=== PATIENT | male | born 1945 | race Caucasian/White ===

== ENCOUNTER 2017-08-21 15:07 | Emergency (ER) | payer MEDICARE, OTHER ==
[2017-08-21 15:28] VITALS: BP 150/88; TEMP 97.9; O2SAT 98
[2017-08-21] MEDS ORDERED: CYCLOBENZAPRINE HCL 10 MG TAB PO ONE (15:37)
--- NOTE | 2017-08-21 15:40 | ED.PDOC ---
History of Present Illness - General Chief Complaint: Back Pain or Injury Stated Complaint: low back pain,left shoulder pain Time Seen by Provider: 08/21/17 15:09 Source: patient, RN notes reviewed, Vital Signs reviewed Exam Limitations: no limitations - History of Present Illness Initial Comments: Patient presents to ER with c/o L shoulder pain and low back pain since Thursday. He was unloading/disconnecting a trailer and the pole jerked and injured his L shoulder and low back. Bar did not hit him, just pulled his muscles. He saw his doctor at the [facility] yesterday who recommended coming to ER to get X-rays. He has been taking Ibuprofen, Tramadol and Tylenol #3 w/o relief in his pain. Timing/Duration: days - 5 Quality/Severity: moderate Back Pain Location: lumbar spine, paraspinous muscles, other - L shoulder - anterior Back Pain Radiation: other - None Method of Injury/Prior Injury: other - see above Improving Factors: nothing Worsening Factors: movement Associated Symptoms: muscle spasms, lower back pain Allergies/Adverse Reactions: Allergies Morphine Allergy (Verified 08/21/17 15:28) Home Medications: Ambulatory Orders Cyclobenzaprine HCl [Flexeril] 10 mg PO Q8HR PRN #30 tab 08/21/17 Tramadol HCl [Ultram] 50 mg PO DAILY 08/21/17 Review of Systems - Review of Systems Constitutional: States: no symptoms reported EENTM: States: other - legally blind Respiratory: States: no symptoms reported Cardiology: States: no symptoms reported Gastrointestinal/Abdominal: States: no symptoms reported Genitourinary: States: no symptoms reported Musculoskeletal: States: see HPI, back pain, joint pain - L shoulder Skin: States: no symptoms reported Neurological: States: no symptoms reported All other Systems: No Change from Baseline Past Medical History (General) - Patient Medical History Hx Cardiac Disorders: Yes - LA x2 Hx Congestive Heart Failure: No Hx Diabetes: No Surgical History: cholecystectomy - Vaccination History Hx Influenza Vaccination: No Hx Pneumococcal Vaccination: No - Social History Hx Tobacco Use: Yes Family Medical History - Family History Father Family History: Unknown Living Status: Unknown Physical Exam - Physical Exam General Appearance: Alert, No apparent distress, Well Developed, Well Groomed, Well Hydrated, Well Nourished Neck Exam: non-tender, normal alignment, normal inspection Cardiovascular/Respiratory: regular rate, rhythm, no M/R/G, normal breath sounds , no respiratory distress Back Exam: muscle spasm - R lumbar paraspinous muscles, vertebral tenderness - over lumbar spine Extremity Exam: pain with movement - L shoulder, tenderness - over L anterior rotator cuff, other - Limited ROM L shoulder due to pain Neurologic: no motor/sensory deficits, alert, normal mood/affect, oriented x 3 Skin Exam: normal color, warm/dry Comments: Vital Signs 08/21/17 15:22 Temperature 97.9 F Pulse Rate [ 79 Right Brachial] Respiratory 16 Rate Blood Pressure 150/88 [Right Arm] O2 Sat by Pulse 98 Oximetry Progress - EKG/XRAY/CT XRAY: L-Spine - mild collapse of superior & inferior endplates of L2 per Rad - Additional EKG/XRAY/Consults XRAY #2: L Shoulder: Normal per Rad Departure - Departure Clinical Impression: Injury of left rotator cuff Qualifiers: Encounter type: initial encounter Qualified Code(s): S46.002A - Unspecified injury of muscle(s) and tendon(s) of the rotator cuff of left shoulder, initial encounter Compression fracture of L2 lumbar vertebra Qualifiers: Encounter type: initial encounter Fracture type: closed Qualified Code(s): S32.020A - Wedge compression fracture of second lumbar vertebra, initial encounter for closed fracture Time of Disposition: 16:18 Disposition: Discharge to Home or Self Care Condition: Good Departure Forms: ED Discharge - Pt. Copy, Patient Portal Self Enrollment Instructions: DI for Rotator Cuff Injury, DI for Vertebral Fracture Diet: resume usual diet Activity: increase activity as tolerated Referrals: BLAIRE OTTO [Primary Care Provider] - 1-2 Weeks Prescriptions: Cyclobenzaprine HCl [Flexeril] 10 mg PO Q8HR PRN #30 tab PRN Reason: Muscle Spasms Home Medications: Ambulatory Orders Cyclobenzaprine HCl [Flexeril] 10 mg PO Q8HR PRN #30 tab 08/21/17 Tramadol HCl [Ultram] 50 mg PO DAILY 08/21/17
--- NOTE | 2017-08-21 16:07 | RAD ---
EXAM DESCRIPTION: Shoulder,Left 2 or More Views CLINICAL HISTORY: pain after moving trailer COMPARISON: None. TECHNIQUE: 2 views left FINDINGS: I see no bone joint or soft tissue abnormality. IMPRESSION: Normal two-view left shoulder Electronically signed by: Agustín Bennett MD 08/21/2017 4:06 PM [facility]
--- NOTE | 2017-08-21 16:07 | RAD ---
EXAM DESCRIPTION: Lumbar Spine 3 Views CLINICAL HISTORY: pain after moving trailer COMPARISON: CTA of the abdomen dated to May 2012 TECHNIQUE: AP/lateral/coned-down lateral FINDINGS: The lumbar vertebral bodies are in good AP alignment. Surgical clips are seen in the right upper quadrant. Pronounced osteopenia is observed throughout the lumbar spine. Loss of disc height is observed at the L1-2 level. Anterior osteophyte formation is observed. There is some mild compression of the superior and inferior endplates of L2. This is a new finding when compared to the previous CT. Calcific atherosclerotic changes observed in the abdominal aorta without evidence of aneurysmal dilatation. IMPRESSION: 1. Focal degenerative changes are observed at the L1-2 level. 2. The exam reveals mild collapse of the superior and inferior endplates of L2. 3. Marked osteopenia is noted. Electronically signed by: Agustín Bennett MD 08/21/2017 4:05 PM [facility]
== END 2017-08-21 16:24 | disposition home or self-care (01) ==
LOC: ER 15:07
DX: S46.002A Unspecified injury of muscle(s) and tendon(s) of the rotator cuff of left shoulder, initial encounter (principal); S32.020A Wedge compression fracture of second lumbar vertebra, initial encounter for closed fracture; I25.2 Old myocardial infarction; Z88.6 Allergy status to analgesic agent; X50.0XXA Overexertion from strenuous movement or load, initial encounter; Y92.9 Unspecified place or not applicable

== ENCOUNTER 2017-11-20 13:45 | Emergency (ER) | payer MEDICARE, OTHER ==
--- NOTE | 2017-11-20 15:31 | RAD ---
EXAM DESCRIPTION: Chest,1 View CLINICAL HISTORY: 72 years Male, COUGH COMPARISON: None. IMPRESSION: Heart size and pulmonary vascularity are within normal limits. Atherosclerosis in the thoracic aorta. Coarsened perihilar interstitial markings with more patchy interstitial thickening and airspace opacities in the left lower lung zone. The findings may reflect chronic interstitial fibrosis, fluid overload with interstitial edema, or multifocal pneumonia. Short interval follow-up is recommended. No pleural effusion or pneumothorax. No acute osseous abnormality. Electronically signed by: August Garcia MD 11/20/2017 3:30 PM [facility] [facility]
[2017-11-20] MEDS ORDERED: SODIUM CHLORIDE 0.9% 1000ML 1,000 ML IVS ONE (17:14)
[2017-11-20] MEDS ORDERED: diltiaZEM DRIP 125 MG in SODIUM CHLORIDE 0.9% 100ML 100 ML IVPB SCH (18:00)
[2017-11-20] MEDS ORDERED: SODIUM CHLORIDE 0.9% 100ML 100 ML IVPB ONE (18:15)
[2017-11-20] MEDS ORDERED: diltiaZEM DRIP 125 MG/25 ML VIAL IVPB ONE (18:16)
--- NOTE | 2017-11-20 19:25 | ED.PDOC ---
History of Present Illness - General Chief Complaint: Respiratory Problem Time Seen by Provider: 11/20/17 14:10 Source: patient, family Exam Limitations: no limitations - History of Present Illness Initial Comments: THE PATIENT IS BROUGHT TO THE ED BECAUSE OF DECREASE APPETITE AND WEAKNESS AND A COUGH AND SOB. HE DENIES ANY FEVER. FAMILY VOICES THAT THE PATIENT SUFFERS OF CHRONIC BACK PAIN AND ON TYLENOL 3. Timing/Duration: 1 week Severity: moderate Possible Cause: frequent episodes Improving Factors: nothing Worsening Factors: nothing Associated Symptoms: denies symptoms Respiratory Risk Factors: no cause identified Allergies/Adverse Reactions: Allergies Morphine Allergy (Verified 08/21/17 15:28) Home Medications: Ambulatory Orders Cyclobenzaprine HCl [Flexeril] 10 mg PO Q8HR PRN #30 tab 08/21/17 Tramadol HCl [Ultram] 50 mg PO DAILY 08/21/17 Review of Systems - Review of Systems Constitutional: States: no symptoms reported EENTM: States: no symptoms reported Respiratory: States: no symptoms reported, short of breath Cardiology: States: no symptoms reported Gastrointestinal/Abdominal: States: no symptoms reported Genitourinary: States: no symptoms reported Musculoskeletal: States: no symptoms reported Skin: States: no symptoms reported Neurological: States: no symptoms reported Endocrine: States: no symptoms reported Hematologic/Lymphatic: States: no symptoms reported Past Medical History (General) - Patient Medical History Hx Seizures: No Hx Stroke: No Hx Dementia: No Hx Asthma: No Hx of COPD: No Hx Cardiac Disorders: Yes - [facility] 2017 Hx Congestive Heart Failure: No Hx Pacemaker: No Hx Hypertension: Yes Hx Thyroid Disease: No Hx Diabetes: No Hx Gastroesophageal Reflux: No Hx Renal Disease: No Hx Cancer: Yes - radiation to right lung Hx of HIV: No Hx Hepatitis C: No Hx MRSA: No Surgical History: cholecystectomy - Vaccination History Hx Tetanus, Diphtheria Vaccination: No Hx Influenza Vaccination: No Hx Pneumococcal Vaccination: No Immunizations Up to Date: No - Social History Hx Tobacco Use: Yes Years Tobacco Use: 50 Cigarettes Packs Per Day: 1 Hx Chewing Tobacco Use: No Hx Alcohol Use: Yes - occasional Hx Substance Use: Yes Hx Substance Use Treatment: No Hx Depression: Yes Feels Threatened In Home Enviroment: No Feels Threatened In a Relationship: No Hx Physical Abuse: No Hx Emotional Abuse: No Hx Suspected Abuse: No - Activities of Daily Living Hospice Agency (if applicable):: None - Female History Patient is a Female of Child Bearing Age (10 -59 yrs old): No Patient : No Family Medical History - Family History Father Family History: Unknown Living Status: Unknown Physical Exam - Physical Exam General Appearance: No apparent distress, Well Groomed Eyes, Ears, Nose, Throat Exam: PERRL/EOMI, normal ENT inspection, TMs normal Neck: non-tender, full range of motion, supple, normal inspection Respiratory: decreased breath sounds, rhonchi Cardiovascular/Chest: normal peripheral pulses, other - INITIALLY HAD A REGULAR RATE AND RHYTHM AND THEN BECAME TACHYCARDIC AROUND 140. Peripheral Pulses: radial,right: 2+, radial,left: 2+ Gastrointestinal/Abdominal: normal bowel sounds, non tender, soft, no organomegaly, no pulsatile mass Rectal Exam: deferred Extremity: normal range of motion, non-tender, normal inspection, no pedal edema Neurologic: no motor/sensory deficits, alert, normal mood/affect, oriented x 3 Skin Exam: normal color Lymphatic: no adenopathy Progress - Results/Orders Results/Orders: EKG #1: HR OF 98, MI INTERVAL OF 142, QRS OF 90, QTC OF 467, AXES OF -20 DEGREES. IMPRESSION: SINUS RHYTHM, EVIDENCE OF ANTERIOR AND INFERIOR WALL [place] AGE UNDETERMINED. EKG#2: HR OF 125, QRS OF 96, QTC OF 560, AXES OF -25 DEGREES. IMPRESSION: ATRIAL FIBRILLATION WITH RVR CASE DISCUSSED WITH DR. MEDINA- ACCEPTS TRANSFER. - EKG/XRAY/CT CT Ordered: No Departure - Departure Clinical Impression: New onset atrial fibrillation Time of Disposition: 20:36 Disposition: Transfer to Hospital Referrals: BLAIRE OTTO [Primary Care Provider] - 1-2 Weeks Home Medications: Ambulatory Orders Cyclobenzaprine HCl [Flexeril] 10 mg PO Q8HR PRN #30 tab 08/21/17 Tramadol HCl [Ultram] 50 mg PO DAILY 08/21/17 Critical Care Note - Critical Care Note Comments: CRITICAL EVENT: ANOREXIA, MALAISE CRITICAL FINDINGS: ATRIAL FIBRILLATION WITH RVR-NEW ONSET CRITICAL ACTIONS: CARDIZEN IVP CARDIZEM IV DRIP- TRANSFER TO A HIGHER LEVEL OF CARE CRITICAL TIME: 35 MINUTES SYSTEMS AT RISK: CARDIOVASCULAR. Transfer to Outside Facility - Transfer Information Accepting Provider:: DR. MYRNA PLUMMER Accepting Facility: [facility]
[2017-11-20 21:57] VITALS: TEMP 100
[2017-11-20 22:54] VITALS: BP 149/68; O2SAT 94
== END 2017-11-20 22:10 | disposition short-term general hospital (02) ==
LOC: ER 13:45
DX: I48.91 Unspecified atrial fibrillation (principal); I25.2 Old myocardial infarction; I10 Essential (primary) hypertension; Z85.118 Personal history of other malignant neoplasm of bronchus and lung; F17.210 Nicotine dependence, cigarettes, uncomplicated
CPT/HCPCS: 36415; 71045; 80048; 81001; 82550; 82553; 83880; 84484; 85025; 85610; 85730; 93005; 94760; J7030; J7050

== ENCOUNTER 2018-08-15 16:45 | Emergency (ER) | payer MEDICARE, OTHER ==
[2018-08-15] MEDS ORDERED: ONDANSETRON INJ 4 MG/2 ML VIAL IV ONE (17:18)
--- NOTE | 2018-08-15 17:30 | ED.PDOC ---
History of Present Illness - General Chief Complaint: Cardiovascular Problem Stated Complaint: N/V, chest discomfort x 3 days Time Seen by Provider: 08/15/18 17:29 Source: patient Exam Limitations: no limitations - History of Present Illness Initial Comments: Buster Casarez 72 y/o male brought to ER with nausea /vomiting the last 2 days no diarrhea and had been eating broth in small amounts since he also get nauseated.no fever or chills,no dysuria or hematuria but with cough accompanied by pleuritic chest pains front and back of chest during coughing episodes.Had generalized weakness also the last 2 days.Had cad/mi,thoracic aortic aneurysm.Also cardiac stent was tried but they were not able to to do it at [facility] and [facility] due to his aneurysm behind heart.Had right lung cancer with 5 radiation treatment but did not pursue further treatment chemotherapy and radiation. Timing/Duration: other - see hpi Severity: moderate Improving Factors: nothing Worsening Factors: nothing Associated Symptoms: chest pain - pleuritic, nausea/vomiting, weakness Allergies/Adverse Reactions: Allergies Morphine Allergy (Verified 08/21/17 15:28) Home Medications: Ambulatory Orders Cyclobenzaprine HCl [Flexeril] 10 mg PO Q8HR PRN #30 tab 08/21/17 Tramadol HCl [Ultram] 50 mg PO DAILY 08/21/17 Promethazine Tab [Phenergan Tablet] 25 mg PO .Q4H PRN #30 tab 08/15/18 levoFLOXacin [Levaquin] 500 mg PO DAILY 7 Days #7 tab 08/15/18 Review of Systems - Review of Systems Constitutional: States: see HPI, weakness EENTM: States: no symptoms reported Respiratory: States: see HPI, cough Cardiology: States: no symptoms reported Gastrointestinal/Abdominal: States: vomiting Genitourinary: States: no symptoms reported Musculoskeletal: States: no symptoms reported Skin: States: no symptoms reported Neurological: States: no symptoms reported Endocrine: States: no symptoms reported Hematologic/Lymphatic: States: no symptoms reported Past Medical History (General) - Patient Medical History Hx Seizures: No Hx Stroke: No Hx Dementia: No Hx Asthma: No Hx of COPD: No Hx Cardiac Disorders: Yes - Aortic aneurysm, CAD/mi Hx Congestive Heart Failure: No Hx Pacemaker: No Hx Hypertension: Yes Hx Thyroid Disease: No Hx Diabetes: No Hx Gastroesophageal Reflux: No Hx Renal Disease: No Hx Cancer: Yes - lung CA w/Radiation tx Hx of HIV: No Hx Hepatitis C: No Hx MRSA: No Surgical History: cholecystectomy, other - hernia repair,knee - Vaccination History Hx Tetanus, Diphtheria Vaccination: No Hx Influenza Vaccination: No Hx Pneumococcal Vaccination: - unknown - Social History Hx Tobacco Use: Yes Hx Chewing Tobacco Use: No Hx Alcohol Use: - Social use in the past Hx Substance Use: Yes Hx Substance Use Treatment: No Hx Depression: Yes Hx Physical Abuse: No Hx Emotional Abuse: No Hx Suspected Abuse: No - Activities of Daily Living Patient Lives Alone: Yes Grooming Ability: Independent Eating (Feeding) Ability: Independent Toileting Ability: Independent - Female History Patient : No Family Medical History - Family History Father Family History: Unknown Living Status: Unknown Physical Exam - Physical Exam General Appearance: Alert, Frail, No apparent distress Eye Exam: bilateral normal Ears, Nose, Throat: hearing grossly normal, normal ENT inspection, normal pharynx, other - several teeth missing Neck: non-tender, full range of motion, supple, normal inspection Respiratory: chest non-tender, no respiratory distress, decreased breath sounds - right side Cardiovascular/Chest: no gallop, no JVD, tachycardia, diastolic murmur Peripheral Pulses: radial,right: 2+, radial,left: 2+ Gastrointestinal/Abdominal: normal bowel sounds, non tender, soft Back Exam: normal inspection, no CVA tenderness, no vertebral tenderness Extremity: no pedal edema, no calf tenderness Neurologic: alert, oriented x 3 Skin Exam: normal color, warm/dry Progress - Progress Progress: 08/15/18 18:56 Vital Signs - 8 hr 08/15/18 08/15/18 08/15/18 17:08 17:54 18:14 Temperature 99.4 F Pulse Rate [ 134 H 110 H 116 H Apical] Respiratory 22 28 H 23 Rate Blood Pressure 118/74 118/74 118/75 [Left Arm] O2 Sat by Pulse 97 94 L 95 Oximetry 08/15/18 19:39 Vital Signs - 8 hr 08/15/18 08/15/18 08/15/18 17:08 17:54 18:14 Temperature 99.4 F Pulse Rate [ 134 H 110 H 116 H Apical] Respiratory 22 28 H 23 Rate Blood Pressure 118/74 118/74 118/75 [Left Arm] O2 Sat by Pulse 97 94 L 95 Oximetry - Results/Orders Results/Orders: 08/15/18 17:18 Telemetry .ONCE EKG Stat Pulse Ox Stat 08/15/18 19:45 EKG STAT Laboratory Results - last 24 hr 08/15/18 08/15/18 08/15/18 17:24 17:30 17:34 WBC 10.4 RBC 4.34 L Hgb 13.8 L Hct 40.3 L MCV 92.8 MCH 31.7 H MCHC 34.4 RDW 13.9 Plt Count 225 MPV 7.9 Absolute Neuts (auto) 9.60 H Absolute Lymphs (auto) 0.20 L Absolute Monos (auto) 0.50 Absolute Eos (auto) 0.00 Absolute Basos (auto) 0.00 Neutrophils % 92.6 H Lymphocytes % 2.2 L Monocytes % 5.0 Eosinophils % 0.0 L Basophils % 0.2 PT 10.8 INR 1.08 PTT (SP) 33.3 H Sodium 130 L Potassium 3.6 Chloride 96 L Carbon Dioxide 21 Anion Gap 16.6 BUN 23 H Creatinine 0.58 L BUN/Creatinine Ratio 39.7 H Random Glucose 140 H Serum Osmolality 266.8 L Lactic Acid 1.1 Calcium 9.1 Magnesium 1.7 L Total Bilirubin 0.8 Direct Bilirubin 0.2 Indirect Bilirubin 0.6 AST 22 ALT 15 Alkaline Phosphatase 82 Creatine Kinase 13 L CK-MB (CK-2) 0.4 CK-MB (CK-2) % Not Reportable Troponin I < 0.02 B-Natriuretic Peptide 76.2 Serum Total Protein 6.6 Albumin 3.1 L Lipase Urine Color Urine Appearance Urine pH Ur Specific Ennice Urine Protein Urine Glucose (UA) Urine Ketones Urine Blood Urine Nitrite Urine Bilirubin Urine Urobilinogen Ur Leukocyte Esterase Urine RBC Urine WBC Ur Epithelial Cells Urine Bacteria Urine Mucus 08/15/18 08/15/18 08/15/18 18:28 19:39 20:13 WBC RBC Hgb Hct MCV MCH MCHC RDW Plt Count MPV Absolute Neuts (auto) Absolute Lymphs (auto) Absolute Monos (auto) Absolute Eos (auto) Absolute Basos (auto) Neutrophils % Lymphocytes % Monocytes % Eosinophils % Basophils % PT INR PTT (SP) Sodium Potassium Chloride Carbon Dioxide Anion Gap BUN Creatinine BUN/Creatinine Ratio Random Glucose Serum Osmolality Lactic Acid Calcium Magnesium Total Bilirubin Direct Bilirubin Indirect Bilirubin AST ALT Alkaline Phosphatase Creatine Kinase CK-MB (CK-2) CK-MB (CK-2) % Troponin I < 0.02 B-Natriuretic Peptide Serum Total Protein Albumin Lipase 17 L Urine Color Melissa Urine Appearance Sl cloudy Urine pH 5.5 Ur Specific Ennice 1.025 Urine Protein 100 H Urine Glucose (UA) Negative Urine Ketones 15 H Urine Blood Small H Urine Nitrite Negative Urine Bilirubin Moderate Urine Urobilinogen 2.0 H Ur Leukocyte Esterase Negative Urine RBC 3-5 H Urine WBC 1-3 Ur Epithelial Cells 1-3 Urine Bacteria Rare Urine Mucus Large Discuss all test with patient and prefers to go home and see his CAIN Fletcher 08/18 2018 stated feels better after 1.5 L of IVF - EKG/XRAY/CT EKG: Sinus, Tachy Comments: hr-134 XRAY: chest - right upper lobe mass CT Ordered: Yes - right apical mass,with adrenal mass Departure - Departure Clinical Impression: Dehydration with hyponatremia Nausea & vomiting Qualifiers: Vomiting type: unspecified Vomiting Intractability: non-intractable Qualified Code(s): R11.2 - Nausea with vomiting, unspecified Malignant neoplasm of right lung Qualifiers: Lung location: upper lobe of lung Qualified Code(s): C34.11 - Malignant neoplasm of upper lobe, right bronchus or lung Time of Disposition: 21:41 Disposition: Discharge to Home or Self Care Condition: Fair Departure Forms: ED Discharge - Pt. Copy, Patient Portal Self Enrollment Diet: other - Avoid greasy/spicy foods Referrals: GABY TAVERAS IV, AGRONOMY SUPERVISOR [Primary Care Provider] - 1-2 Weeks Prescriptions: levoFLOXacin [Levaquin] 500 mg PO DAILY 7 Days #7 tab Promethazine Tab [Phenergan Tablet] 25 mg PO .Q4H PRN #30 tab PRN Reason: Nausea Home Medications: Ambulatory Orders Cyclobenzaprine HCl [Flexeril] 10 mg PO Q8HR PRN #30 tab 08/21/17 Tramadol HCl [Ultram] 50 mg PO DAILY 08/21/17 Promethazine Tab [Phenergan Tablet] 25 mg PO .Q4H PRN #30 tab 08/15/18 levoFLOXacin [Levaquin] 500 mg PO DAILY 7 Days #7 tab 08/15/18 Additional Instructions: Return to ER if symptoms worsens;Keep appointment with CAIN Fletcher 18 August 2018
--- NOTE | 2018-08-15 17:55 | RAD ---
EXAM: Chest,1 View CLINICAL INDICATION: Chest pain COMPARISON: 11/20/2017 FINDINGS: Single view of the chest reveals a masslike density at the right lung apex measuring up to 6.9 x 6.5 cm. Mild infiltrates are seen in the mid left lung. The lungs are otherwise clear. The heart size and pulmonary vessels are within normal limits. There is no pneumothorax. IMPRESSION: Masslike density in the right lung apex. Infiltrate, possibly pneumonia in the mid left lung. CT scan of the chest is recommended for further evaluation. Electronically signed by: Mandeep Buitrago MD 08/15/2018 5:54 PM [facility]
[2018-08-15] MEDS ORDERED: SODIUM CHLORIDE 0.9% 500ML 500 ML IVS ONE (18:29)
[2018-08-15] MEDS ORDERED: SODIUM CHLORIDE 0.9% 1000ML 1,000 ML ONE (18:36)
--- NOTE | 2018-08-15 19:07 | CT ---
EXAM DESCRIPTION: Chest w/o Contrast CLINICAL HISTORY: cough COMPARISON: Same day plain film TECHNIQUE: Contiguous axial images of the chest were obtained from the thoracic inlet up to the upper abdomen followed by reconstruction images. This exam was performed according to our departmental dose-optimization program, which includes automated exposure control, adjustment of the mA and/or kV according to patient size and/or use of iterative reconstruction technique. FINDINGS: There is a solid-appearing soft tissue mass with a punctate calcification located in the right pulmonary apex. The mass measures 74 mm transverse by 57 mm AP. Bronchi extending into it but appear compressed and occluded. Gallbladder is surgically absent. Nonspecific round low-attenuation lesion is seen in the medial left liver and measures 23 mm diameter. There is an lobular right adrenal mass of soft tissue attenuation measuring 50 x 21 mm. There are mildly enlarged mediastinal lymph nodes. There is consolidation at the posterior left lung. There are scattered small pulmonary bulla in the left lung. There is consolidation at the right lung base and interstitial thickening in the right upper lobe.. The aorta is of normal contour and tapering. There is no pericardial or pleural fluid collection. No pneumothorax. The right hemidiaphragm is elevated. No other acute abnormality. IMPRESSION: Findings are worrisome for neoplasm in the right upper lung. Consolidation is possible but bronchi within the lesion are compressed and occluded. There is interstitial disease and consolidation elsewhere. See additional findings above. Electronically signed by: Ayaan León 08/15/2018 7:06 PM [facility] [employer]
[2018-08-15] MEDS ORDERED: LACTATED RINGERS 1,000 ML IVS ONE (19:28)
[2018-08-15 21:22] VITALS: O2SAT 96
[2018-08-15] MEDS ORDERED: levoFLOXacin 500 MG TAB PO ONE (21:36)
[2018-08-15] MEDS ORDERED: PROMETHAZINE TAB (ER DISP) 25 MG TAB PO ONE (21:36)
[2018-08-15 22:14] VITALS: BP 137/68; TEMP 98.1
== END 2018-08-15 22:15 | disposition home or self-care (01) ==
LOC: ER 16:45
DX: E86.0 Dehydration (principal); E87.1 Hypo-osmolality and hyponatremia; R11.2 Nausea with vomiting, unspecified; C34.11 Malignant neoplasm of upper lobe, right bronchus or lung; R07.1 Chest pain on breathing; I25.10 Atherosclerotic heart disease of native coronary artery without angina pectoris; I10 Essential (primary) hypertension; Z92.3 Personal history of irradiation; Z79.899 Other long term (current) drug therapy; Z88.5 Allergy status to narcotic agent
CPT/HCPCS: 36415; 71045; 71250; 80048; 80076; 81001; 82550; 82553; 83605; 83690; 83880; 84484; 85025; 85610; 85730; 93005; J2405; J7120; Q0169

== ENCOUNTER → 2018-09-08 | Outpatient (CLI) | payer MEDICARE, OTHER ==
--- NOTE | 2018-09-09 13:59 | CT ---
EXAM DESCRIPTION: Abdomen/Pelvis w/wo Contrast CLINICAL HISTORY: 73 years Male, MALIGNANT NEOPLASM OF LYMPHNODES COMPARISON: CT chest dated 08/15/2018. TECHNIQUE: Contiguous 3 mm axial images were obtained from the lung bases to the level of the proximal femora before and after the administration of intravenous and oral contrast. Sagittal and coronal reconstructions were reviewed. FINDINGS: LIVER: The liver demonstrates normal size and density with no intrahepatic biliary ductal dilatation or focal masses. A simple cyst is identified in the left hepatic lobe in segment 4A. GALLBLADDER: Surgically absent. PANCREAS: Appears normal with no cystic or solid lesions. SPLEEN: Normal ADRENAL GLANDS: Multiple nodules are identified in bilateral adrenal glands the largest measuring 2.2 cm on the right side. KIDNEYS: Both kidneys enhance symmetrically with no hydronephrosis or nephrolithiasis or perinephric fluid collections. No focal masses are identified. The visualized ureters appear grossly unremarkable. STOMACH: The stomach is not well-distended limiting detailed evaluation. SMALL BOWEL: The small bowel loops demonstrate variable degrees of distention with no abnormal dilatation or other signs to suggest bowel obstruction. LARGE BOWEL: Mild constipation is identified. No evidence of free intraperitoneal air or fluid. RETROPERITONEUM: The abdominal aorta is nonaneurysmal with moderate to severe atherosclerosis. The inferior vena cava is normal in size and caliber. No abnormally enlarged retroperitoneal lymph nodes are identified. URINARY BLADDER:The urinary bladder is well-distended with no gross abnormality. Prostate gland and seminal vesicles appear normal. ADDITIONAL FINDINGS: None. BONES: Mild degenerative changes are identified in the visualized bones.Compression deformity of T12 vertebral body is again noted. There is mild superior end plate compression of L4 vertebral body which is age indeterminate. IMPRESSION: 1. Multiple nodules are identified in the bilateral adrenal glands largest measuring 2.2 cm on the right side. These are suspicious for malignancy. 2. Compression deformity of T12 vertebral body is again noted. Mild superior endplate compression of L4 vertebral body is also noted which is age indeterminate. This exam was performed according to our departmental dose-optimization program, which includes automated exposure control, adjustment of the mA and/or kV according to patient size and/or use of iterative reconstruction technique. Electronically signed by: Isabel Greco MD 09/09/2018 1:58 PM [employer]
--- NOTE | 2018-09-09 14:10 | CT ---
EXAM DESCRIPTION: Chest w/wo Contrast CLINICAL HISTORY: 73 years Male, MALIGNANT NEOPLASM OF LUNG COMPARISON: CT chest without contrast dated 08/15/2018. TECHNIQUE: Contiguous thin section axial images through the chest were obtained after the administration of intravenous contrast. Sagittal and coronal reconstructions were reviewed. FINDINGS: The visualized thyroid gland and supraclavicular region appear normal. Few mediastinal lymph nodes measuring up to 1.6 cm are noted. No abnormally enlarged axillary or hilar lymphadenopathy. 6.8 x 8.2 cm soft tissue mass is identified in the anterior segment of the right upper lobe, surrounding the right upper lobe bronchus. Postobstructive groundglass opacities are identified in the right upper lobe. Few groundglass opacities are noted in the left lower lobe as well. The heart is normal in size with no pericardial effusion. The visualized aorta is nonaneurysmal with no significant atherosclerosis. The superior vena cava is normal in size and caliber.No significant coronary artery atherosclerosis. The esophagus appears normal throughout its visualized length. Again identified in the bilateral adrenal nodules, highly suspicious for metastasis. Compression fracture of T12 vertebral body is again noted. IMPRESSION: 1. 6.8 x 8.2 cm soft tissue mass is noted in the anterior segment of the right upper lobe consistent with malignancy. 2. Multiple nodules are identified in bilateral adrenal glands, highly suspicious for metastasis. This exam was performed according to our departmental dose-optimization program, which includes automated exposure control, adjustment of the mA and/or kV according to patient size and/or use of iterative reconstruction technique. Electronically signed by: Isabel Greco MD 09/09/2018 2:09 PM [employer]
== END ==
LOC: LAB.O 12:12
PROVIDERS: ATTEND Nurse Practitioner Family
DX: C77.8 Secondary and unspecified malignant neoplasm of lymph nodes of multiple regions (principal); E27.8 Other specified disorders of adrenal gland; Z85.110 Personal history of malignant carcinoid tumor of bronchus and lung